=== PATIENT | male | born 1945 | race Caucasian/White ===

== ENCOUNTER → 2017-09-15 08:38 | Outpatient (CLI) | payer SELFPAY ==
--- NOTE | 2017-09-15 09:15 | NURSING ---
PT BROUGHT INTO [facility]S OFFICE TO DISCUSS REASONING BEHIND CANCELLING LIVER BIOPSY. PT UNDERSTANDING. THIS RN CALLED DR. SANCHEZ'S OFFICE AND LEFT VOICEMAIL TO INFORM OF BIOPSY CANCELATION.
== END ==
PROVIDERS: Visit Provider Urology
DX: Z53.9 Procedure and treatment not carried out, unspecified reason (principal)

== ENCOUNTER → 2018-01-19 13:58 | Outpatient (CLI) | payer SELFPAY ==
--- NOTE | 2018-01-19 | CYSPIN_PTH ---
PATIENT: PHILIP BLACKBURN LOC: [facility] U#:[id number] AGE/SX: 79/M ROOM: RE01/19/[address]: Dr. Richy Weaver MD : 1945 BED: DIS: SPEC #: [id number] RECD: 01/20/18 13:11 STATUS: JOANNE ANAMIKA #: [id number] CAM: 01/19/18 00:[address]: Richy Weaver DEPT: CYTOLOGY RECD BY: Yohannes Anaya ENTERED: 01/20/18 13:11 SP TYPE: CYSPIN FL OTHR DR: No Primary Care Phys Tissues: Urine Procedures: Pap Stain (control) Special Stain Group II Cytospin Fluid HEADER OPERATION: Not noted PRE-OP DIAGNOSIS: Prostate CA TISSUE SUBMITTED: Urine for cytology DIAGNOSIS CYTOLOGY Urine for cytology (cytospin): Negative for malignant cells. Paucicellular specimen. 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 CYTOLOGY STUDY Slides are reviewed. CYTOLOGY GROSS Received is 25 ml of clear yellow fluid labeled with the patient's name and and designated per the requisition as urine. Submitted for cytology preparation. 01/20/18 TC:4 CPT: 27811
[2018-01-19 15:24] LABS: PSA,Total- Diagnostic < 0.01 ng/mL (0.0-4.0)
[2018-01-19 17:55] LABS: Cytology, Body Fluid / CSF SEE PATHOLOGY REPORT
== END ==
PROVIDERS: Referring Provider Urology; Visit Provider Urology
DX: C61 Malignant neoplasm of prostate (principal)
CPT/HCPCS: 36415; 84153; 88108; 88313